=== PATIENT | male | born 1985 | race Caucasian/White ===

== ENCOUNTER 2023-09-02 12:42 | Emergency (ER) | payer SELFPAY ==
--- NOTE | ~2023-09-02 | XR_ITS ---
EXAMINATION: XR knee LT min 4V DATE: 09/02/2023 13:30 INDICATION: Left knee pain TECHNIQUE: Four views of the left knee were obtained. COMPARISON: None. FINDINGS: There is a questionable fracture along the superior margin of the patella. Joint spaces are normal with no erosions. There is a moderate size knee joint effusion. There is lateral soft tissue swelling of the knee. IMPRESSION: 1. Possible fracture along the superior margin of the patella with moderate size joint effusion. Cons ider CT for further evaluation. Reviewed, dictated and finalized at location F. IMPRESSION: 1. Possible fracture along the superior margin of the patella with moderate siz e joint effusion. Consider CT for further evaluation.
[2023-09-02 12:52] VITALS: BP 153/93; PULSE 110; RESP 18; TEMP 37; O2SAT 96
--- NOTE | 2023-09-02 13:12 | ED.LOWEXIN ---
HPI - Extremity Injury (Lower) General Chief Complaint: Extremity Injury, Lower Stated Complaint: Left Knee Injury History of Present Illness HPI Narrative: PATIENT PRESENTS WITH LEFT KNEE PAIN. PATIENT SLIPPED OUT OF THE BOAT LAST NIGHT LANDING ON HIS LEFT KNEE. PATIENT STATES HE HAS PAIN AND DISCOMFORT WITH AMBULATION. Related Data Home Medications Medication Instructions Recorded Confirmed No Home Medications 09/02/23 09/02/23 Allergies Allergy/AdvReac Type Severity Reaction Status Date / Time No Known Allergies Allergy Verified 09/02/23 13:00 Review of Systems Review of Systems: CONSTITUTIONAL: DENIES FEVER, CHILLS, OR SWEATS. EYES: DENIES VISUAL CHANGES, REDNESS, OR DISCHARGE. ENT: DENIES RHINORRHEA, CONGESTION, SORE THROAT, OR OTALGIA. CARDIOVASCULAR: DENIES CHEST PAIN, PALPITATIONS, OR EDEMA. RESPIRATORY: DENIES COUGH OR DYSPNEA. GASTROINTESTINAL: DENIES ABDOMINAL PAIN, NAUSEA, VOMITING, OR DIARRHEA. GENITOURINARY: DENIES DYSURIA OR HEMATURIA. SKIN: DENIES RASH OR ITCHING. MUSCULOSKELETAL: DENIES BACK PAIN, JOINT PAIN, OR MYALGIA. NEUROLOGIC: DENIES HEADACHE, NUMBNESS, OR WEAKNESS. PSYCHIATRIC: DENIES ANXIETY OR DEPRESSION. [facility] Comments AT TIME OF SIGNATURE, AGREE WITH NURSING PAST MEDICAL, SURGICAL, SOCIAL AND FAMILY HISTORY. THERE IS NO RELEVANT FAMILY HISTORY PERTINENT TO THE PRESENTING COMPLAINT Exam Narrative: GENERAL: WELL-APPEARING, WELL-NOURISHED, AND IN NO ACUTE DISTRESS. HEAD: NORMOCEPHALIC, ATRAUMATIC. EYES: PERRLA AND EOMI. ENT: NARES CLEAR, NO RHINORRHEA OR EPISTAXIS. MUCOUS MEMBRANES MOIST. NECK: SUPPLE. CHEST: CLEAR TO AUSCULTATION. NO RESPIRATORY DISTRESS. HEART: REGULAR RATE AND RHYTHM. NO MURMUR HEARD. NORMAL PERIPHERAL PULSES. ABDOMEN: SOFT, NONTENDER, NONDISTENDED, NORMAL ACTIVE BOWEL SOUNDS. EXTREMITIES: NORMAL RANGE OF MOTION. NO EDEMA.SKIN INTACT. NO DEFORMITY. NORMAL ROM, HAS FULL EXTENSION AND FLEXION. COMPARTMENTS SOFT. NEGATIVE ANTERIOR, POSTERIOR DRAWER SIGNS ON TEST. NO CREPITUS. DP PULSE, NORMAL CAPILLARY REFILL MCMURRAYS, PAIN TO RIGHT MEDIAL AND DISTAL KNEE WITH KNEE FLEXION, INTERNAL AND EXTERNAL FOOT ROTATION.NO ERYTHEMA OR INCREASED WARMTH TO CALF. . SKIN: WARM, DRY, NO RASH. NEURO: NO FOCAL DEFICITS. ALERT AND ORIENTED X3. ELÍAS COMA SCALE EYE OPENING: SPONTANEOUS 4 ELÍAS COMA SCALE MOTOR: OBEYS COMMANDS 6 ELÍAS COMA SCALE VERBAL: ORIENTED 5 ELÍAS COMA SCALE TOTAL 15 Course Course Level of Care: Express Care Visit Vital Signs Vital signs: Vital Signs Temperature 37.0 C 09/02/23 12:52 Pulse Rate 110 H 09/02/23 12:52 Respiratory Rate 18 09/02/23 12:52 Blood Pressure 153/93 H 09/02/23 12:52 Pulse Oximetry 96 09/02/23 12:52 Oxygen Delivery Room Air 09/02/23 12:52 Temperature 37.0 C 09/02/23 12:52 Pulse Rate 110 H 09/02/23 12:52 Respiratory Rate 18 09/02/23 12:52 Blood Pressure 153/93 H 09/02/23 12:52 Pulse Oximetry 96 09/02/23 12:52 Oxygen Delivery Room Air 09/02/23 12:52 PLEASE PEPE SCHEDULE A FOLLOWUP VISIT WITH YOUR PERSONAL PHYSICIAN FOR FURTHER EVALUATION AND TREATMENT. INCLUDING RECHECK AND DISCUSSION OF YOUR BLOOD PRESSURE. IF YOUR SYMPTOMS PERSIST, CHANGE OR WORSEN SIGNIFICANTLY BEFORE YOU CAN CONTACT YOUR PERSONAL PHYSICIAN THEN PLEASE, WITHOUT DELAY, GO TO THE EMERGENCY DEPARTMENT FOR FURTHER EVALUATION MDM - Extremity Injury (Lower) Imaging Data Radiologist's impression: POSSIBLE FRACTURE ALONG THE SUPERIOR MARGIN OF THE PATELLA WITH MODERATE SIZE JOINT EFFUSION Discharge Plan Discharge Clinical Impression: Knee contusion, Fracture, patella Patient Disposition: Home, Self-Care Condition: Stable Instructions: Knee Sprain (DC), Knee Pain (ED) Additional Instructions: ICE TO THE AREA 20-30 MINUTES 4-6 TIMES A DAY ELEVATE ABOVE HEART ORTHOPEDIC SPLINT DIRECTED UNTIL DISCONTINUED BY ORTHOPEDIC MD DR SHULTZ ORTHOPEDIC NATURAL FABRICATOR CALL HIS OFFICE Monday [phone]
== END 2023-09-02 14:06 | disposition home or self-care (01) ==
PROVIDERS: Emergency Provider Nurse Practitioner Family
DX: S82.002A Unspecified fracture of left patella, initial encounter for closed fracture (principal); S80.02XA Contusion of left knee, initial encounter; V92.09XA Drowning and submersion due to fall off unspecified watercraft, initial encounter
CPT/HCPCS: 73564; 99214; G0463; L1830